=== PATIENT | female | born 1950 | race Asian ===

== ENCOUNTER 2017-02-18 10:20 | Emergency (ER) | payer OTHER ==
[2017-02-18] MEDS ORDERED: HYDROCODONE/APAP 5-325MG TABLET ONE (11:37)
[2017-02-18] MEDS ORDERED: HYDROCODONE/APAP 5-325MG TABLET PO ONE (12:45)
[2017-02-18 12:59] LABS: BASOPHILS % (AUTO) 0.7 % (0.0-2.0); EOSINOPHILS # (AUTO) 0.1 K/uL (0.0-0.7); EOSINOPHILS % (AUTO) 2.4 % (0.0-7.0); HEMATOCRIT 40.6 % (37-47); HEMOGLOBIN 13.6 G/DL (12.0-16.0); LYMPHOCYTES # (AUTO) 2.5 K/UL (0.8-4.8); LYMPHOCYTES % (AUTO) 46.1 % (20.5-51.5); MEAN CORPUSCULAR HEMOGLOBIN 30.7 UUG (27.0-31.0); MEAN CORPUSCULAR HGB CONC 34 g/dL (32.0-37.0); MEAN CORPUSCULAR VOLUME 91.3 FL (81.0-99.0); MONOCYTES # (AUTO) 0.5 K/UL (0.1-1.30); MONOCYTES % (AUTO) 9.1 % (0.0-11.0); NEUTROPHILS # (AUTO) 2.2 K/UL (1.8-8.9); NEUTROPHILS % (AUTO) 41.7 % (38.5-71.5); PLATELET COUNT (AUTO) 227 K/UL (150-450); RED BLOOD CELL COUNT(AUTO) 4.44 MIL/UL (4.2-5.4); WHITE BLOOD COUNT (AUTO) 5.3 K/UL (4.0-11.2)
[2017-02-18 13:16] LABS: CREATININE 0.6 mg/dL (0.6-1.3)
[2017-02-18 13:21] LABS: BILIRUBIN,DIRECT 0.1 mg/dL (0.0-0.2); BILIRUBIN,TOTAL 0.4 mg/dL (0.2-1.0); TOTAL PROTEIN, SERUM 6.9 g/dL (6.4-8.2)
[2017-02-18] MEDS ORDERED: ONDANSETRON IV *ER 4 MG/2 ML VIAL IV ONE (13:45)
[2017-02-18] MEDS ORDERED: MORPHINE SULFATE 4 MG/1 ML DISP.SYRIN IV ONE (13:45)
--- NOTE | 2017-02-18 14:08 | NUR ---
CALLED JOSE FOR TRANSFER TO [facility] MRI
[2017-02-18] MEDS ORDERED: ONDANSETRON 4 MG/2 ML VIAL ONE (14:51)
[2017-02-18] MEDS ORDERED: MORPHINE SULFATE 4 MG/1 ML DISP.SYRIN ONE (14:51)
--- NOTE | 2017-02-18 15:03 | NUR ---
PATIENT WAS PICKED UP BY [facility] EMT REPORT WAS GIVEN. PATIENT WAS NOT IN ANY DISTRESS.
--- NOTE | 2017-02-18 16:53 | NUR ---
PT BACK FROM [facility]
--- NOTE | 2017-02-18 17:43 | NUR ---
Patient discharged to home in stable conditon. Written and verbal after care instructions given. Patient verbalizes understanding of instructions.PT SAYS FEELS BETTER, WALKS IN STEADY GAIT, PT WITH , NOT DRIVING
[2017-02-18 18:12] VITALS: BP 121/59
== END 2017-02-18 17:45 | disposition home or self-care (01) ==
LOC: ER 10:20
DX: M47.22 Other spondylosis with radiculopathy, cervical region (principal)
CPT/HCPCS: 36415; 70030-TC; 71010; 72125; 72141; 85025; 85730; 93005; A4663; J2270; J2405